=== PATIENT | female | born 1955 | race Caucasian/White ===

== ENCOUNTER 2021-11-09 06:59 | Day surgery (SDC) | payer MEDICAID ==
[~2021-11-09 06:59] MED LIST: Acetaminophen 325 MG Tab PO SCH; Lactated Ringers 1,000 ML IV SCH; Lidocaine 1%/Sod Bicarbonate in NS 8.4% 1 ML Syringe IDERM PRN; Morphine 8 MG, EPINEPHrine 0.3 MG, Cefuroxime 750 MG, Ketorolac 30 MG, Sodium Chloride ... PRN; Pregabalin 25 MG Cap PO SCH; Sodium Chloride 0.9% 10 ML Syringe FLUSH PRN; oxyCODONE ER 10 MG TAB.ER PO SCH
[2021-11-09] MEDS ORDERED: ceFAZolin 1 GM Vial ONE (07:19)
[2021-11-09] MEDS ORDERED: Propofol 200 MG/20 ML SDV ONE (07:20)
[2021-11-09] MEDS ORDERED: fentaNYL 100 MCG/2 ML SDV ONE (07:20)
[2021-11-09] MEDS ORDERED: Vancomycin 1 GM SDV ONE (07:23)
[2021-11-09] MEDS ORDERED: Midazolam 1 MG/ML 2 ML SDV ONE (07:32)
--- NOTE | 2021-11-09 08:00 | PCM.PREANE ---
Preanesthetic Assessment - Procedure Proposed Procedure: Right THR - Anesthesia/Transfusion/Family Hx Anesthesia History: Prior Anesthesia Without Reaction - Review of Systems General: No Symptoms Pulmonary: No Symptoms Cardiovascular: No Symptoms Gastrointestinal: No Symptoms Neurological: No Symptoms Other: Reports: None - Physical Assessment NPO Status Date: 11/08/21 NPO Status Time: 21:30 Vital Signs: 157/62, 78 HR 95% SpO2 ASA Class: 3 Mental Status: Alert & Oriented x3 Airway Class: Mallampati = 2 Dentition: Reports: Normal Dentition, [place](s), Bridge Thyro-Mental Finger Breadths: 3 Mouth Opening Finger Breadths: 3 ROM/Head Extension: Full Lungs: Clear to Auscultation, Normal Respiratory Effort Cardiovascular: Regular Rate, Regular Rhythm - Allergies Allergies/Adverse Reactions: Allergies Allergy/AdvReac Type Severity Reaction Status Date / Time amoxicillin Allergy Itching Verified 03/07/21 08:53 chlorhexidine Allergy Rash Verified 11/09/21 09:41 erythromycin base Allergy Vomiting Verified 03/07/21 08:53 Penicillins Allergy Cannot Verified 03/07/21 08:53 Remember tetracycline Allergy Tachycardia Verified 03/07/21 08:53 NARCOTICS Allergy Severe Dizziness Uncoded 03/07/21 11:59 - Acknowledgements Anesthesia Type Planned: General Anesthesia, Spinal Pt an Appropriate Candidate for the Planned Anesthesia: Yes Alternatives and Risks of Anesthesia Discussed w Pt/Guardian: Yes Pt/Guardian Understands and Agrees with Anesthesia Plan: Yes PreAnesthesia Questionnaire - HOME MEDS Home Medications: Home Meds Anastrozole [Arimidex] 1 mg PO DAILY 04/28/20 [History] Multivitamin [Multi-Vitamin Daily] 1 tab PO DAILY 04/28/20 [History] Biotin 1 cap PO DAILY 10/03/20 [History] Calcium Carb/Vitamin D3/Vit K1 [Calcium + D Soft Chewable Tab] 1 tab PO DAILY 10/03/20 [History] Cholecalciferol (Vitamin D3) [Vitamin D3] 1 tab PO DAILY 10/03/20 [History] Garlic 2 each PO DAILY 10/03/20 [History] Kptwealj-Qbytpqy-Utpj 149-Hyal [Glucosamine-Chondr Complex Tab] 2 each PO DAILY 10/03/20 [History] Turmeric 1 cap PO DAILY 10/03/20 [History] Vitamin B Complex 1 cap PO DAILY 10/03/20 [History] Vitamin E 200 unit PO DAILY 10/03/20 [History] Sulfamethoxazole/Trimethoprim [Bactrim Ds Tablet] 1 tab PO BID 03/07/21 [History] Apixaban [Eliquis] 2.5 mg PO BID #70 tablet 11/08/21 [Rx] Cyclobenzaprine [Flexeril] 5 mg PO BID PRN #10 tab 11/08/21 [Rx] Hydrocodone/Acetaminophen [HYDROcodone-Acetaminophen 5-325 MG] 1 - 2 each PO Q4H PRN #30 tablet 11/08/21 [Rx] lisinopriL [Lisinopril] 10 mg PO DAILY 11/09/21 [History] - CURRENT (IN HOUSE) MEDS Current Meds: Current Medications Acetaminophen (Acetaminophen 325 Mg Tab) 975 mg PO ONETIME LORENE Stop: 11/09/21 12:00 Morphine Sulfate 8 mg/Epinephrine HCl 0.3 mg/Cefuroxime Sodium 750 mg/Ketorolac Tromethamine 30 mg/Sodium Chloride 7.9 ml 0 mg .XX ASDIRECTED PRN PRN Reason: Pain Stop: 11/09/21 16:00 Lactated Ringer's (Ringers, Lactated) 1,000 mls @ 125 mls/hr IV ASDIRECTED LORENE Stop: 11/09/21 23:00 Lidocaine/Sodium Bicarbonate (Lidocaine 1%/Sod Bicarbonate In Ns 8.4% 1 Ml Syringe) 0.25 ml IDERM ONETIME PRN PRN Reason: Prior to IV Start Stop: 11/09/21 18:00 Oxycodone HCl (Oxycodone Er 10 Mg Tab.Er) 10 mg PO ONETIME LORENE Stop: 11/09/21 12:00 Pregabalin (Pregabalin 25 Mg Cap) 25 mg PO ONETIME LORENE Stop: 11/09/21 12:00 Sodium Chloride (Sodium Chloride 0.9% 10 Ml Syringe) 10 ml FLUSH ASDIRECTED PRN PRN Reason: Keep Vein Open Stop: 11/09/21 18:00 Discontinued Medications Cefazolin Sodium (Cefazolin 1 Gm Vial) Confirm Administered Dose 2 gm .ROUTE .STK-MED ONE Stop: 11/09/21 07:20 Fentanyl (Fentanyl 100 Mcg/2 Ml Sdv) Confirm Administered Dose 100 mcg .ROUTE .STK-MED ONE Stop: 12/09/21 07:21 Midazolam HCl (Midazolam 1 Mg/Ml 2 Ml Sdv) Confirm Administered Dose 2 mg .ROUTE .STK-MED ONE Stop: 11/09/21 07:33 Propofol (Propofol 200 Mg/20 Ml Sdv) Confirm Administered Dose 400 mg .ROUTE .STK-MED ONE Stop: 11/09/21 07:21 Tranexamic Acid (Tranexamic Acid 1,000 Mg/10 Ml Amp) Confirm Administered Dose 1,000 mg .ROUTE .STK-MED ONE Stop: 11/09/21 07:25 Vancomycin HCl (Vancomycin 1 Gm Sdv) Confirm Administered Dose 1 gm .ROUTE .STK- MED ONE Stop: 11/09/21 07:24
[2021-11-09] MEDS ORDERED: Bupivacaine 0.25% 10 ML SDV ONE (08:06)
[2021-11-09] MEDS ORDERED: Triamcinolone Acetonide 40 MG/ML 1 ML SDV ONE ×2 (08:06→10:26)
[2021-11-09] MEDS ORDERED: Bupivacaine 0.75% 30 ML SDV ONE (08:31)
[2021-11-09] MEDS ORDERED: ePHEDrine 50 MG/ML SDV ONE (09:23)
[2021-11-09] MEDS ORDERED: Lactated Ringers 1,000 ML ONE (09:25)
--- NOTE | 2021-11-09 10:58 | CR ---
Pelvis and right hip: AP and crosstable lateral views of the right hip were obtained. Comparison: Prior right hip CT study of 10/17/21. Right hip prosthesis is noted. Components are aligned. Underlying bony structures are intact. Small amount of soft tissue air is seen. Impression: 1. Satisfactory postoperative radiographic appearance of recently placed right hip prosthesis. Diagnostic code #2
--- NOTE | 2021-11-09 11:20 | PCM.POSTAN ---
POST ANESTHESIA ASSESSMENT - MENTAL STATUS Mental Status: Somnolent - VITAL SIGNS Vital Signs: Last Vital Signs Temp 98.4 F 11/09/21 07:15 Pulse 78 11/09/21 07:15 Resp 16 11/09/21 10:45 BP 108/56 L 11/09/21 10:45 Pulse Ox 97 11/09/21 10:45 - RESPIRATORY Respiratory Status: Respiratory Rate WNL, Airway Patent, O2 Saturation Stable, Supplemental Oxygen - CARDIOVASCULAR CV Status: Pulse Rate WNL, Blood Pressure Stable - GASTROINTESTINAL GI Status: No Symptoms - PAIN Pain Score: 0 (post SAB) - POST OP HYDRATION Hydration Status: Adequate & Stable
[2021-11-09] MEDS: Ondansetron 4 MG Tab.DIS PO STA ×2 (13:15→18:54)
[2021-11-09] MEDS: Dexamethasone 4 MG/ML SDV IVPUSH STA ×2 (15:35→18:54)
[2021-11-09] MEDS: Scopolamine 1.5 MG Transdermal Patch TOP STA ×2 (15:35→18:54)
[2021-11-09] MEDS: diphenhydrAMINE 50 MG/ML SDV IVPUSH STA ×2 (15:38→18:54)
[2021-11-09] MEDS: Acetaminophen/HYDROcodone 325-5 MG Tab PO PRN (20:13)
[2021-11-10] MEDS: Acetaminophen/HYDROcodone 325-5 MG Tab PO PRN ×2 (01:09→07:30)
[2021-11-10] MEDS ORDERED: Cyclobenzaprine 10 MG Tab PO PRN (17:28)
--- NOTE | 2021-11-19 17:08 | PCM.OPNOTE ---
- General Post-Op/Procedure Note Date of Surgery/Procedure: 11/09/21 Operative Procedure(s): right total hip arthroplasty with [employer] robot[employer] Pre Op Diagnosis: right hip osteoarthrosis Post-Op Diagnosis: Same Anesthesia Technique: Local, MAC, Spinal Primary Surgeon: Warren Cervantes Anesthesia Provider: Kareem Smith Aws Developer: Amy Rodriguez Aws Developer: Berkley Weathers EBL in mLs: 250 Complications: None Condition: Good Free Text/Narrative:: 52 6 36+0
--- NOTE | 2021-11-20 10:56 | OR ---
DATE OF OPERATION: 11/09/2021 SURGEON: Warren Cervantes MD OPERATION PERFORMED: Right total hip arthroplasty with [employer] robot[employer]. PREOPERATIVE DIAGNOSIS: Right hip osteoarthrosis. POSTOPERATIVE DIAGNOSIS: Right hip osteoarthrosis. ANESTHESIA: Local MAC with spinal. ANESTHESIA PROVIDER: Estelita Francis. ASSISTANTS: Amy Rodriguez PA-C and Berkley Weathers LPN. ESTIMATED BLOOD LOSS: 250 mL. COMPLICATIONS: None. CONDITION: Stable. IMPLANT: 1. [place] size 52 mm solid Tritanium II acetabular cup. 2. [place] size 6 Accolade II stem. 3. [place] size 36 +0 Biolox femoral head. DESCRIPTION OF PROCEDURE: The patient was identified in the preoperative holding area. Proper site was marked and identified by the surgeon. The patient was taken back to the operating theater, where after adequate anesthesia, the patient was placed in a left lateral decubitus position. Axillary roll was placed. Pegs were placed and well padded. The patient's gluteal fold was parallel to the floor. Right hip was then sterilely prepped and draped in the usual sterile fashion. OR time- out was performed. The patient received 2 g IV Ancef. Three small poke hole incisions were then made over the iliac crest 3 fingerbreadths posterior to the ASIS, and three 4.0 Schanz pins were placed and the [employer] robotic array was placed down onto the iliac crest. At this time, standard posterior incision was made. This was taken down to the IT band and gluteal fascia which was incised along the incisional length. Charnley retractor was then placed. Short external rotators were identified. Takedown of short external rotators was done from the level of the piriformis down to the lesser trochanter. The checkpoint was then placed in the greater trochanter and leg lengths were measured using [employer] robot[employer]. Hip was then dislocated. Neck cut was completed and found to be adequate. Attention was turned to the acetabulum. Anterior and posterior acetabular retractors were placed. Circumferential removal of the pulvinar as well as the labrum was done at this time. Checkpoint was placed on the superior rim of the acetabulum. Three check points were then marked on the iliac crest and then 15 points were obtained intra-articularly and extra- articularly in the acetabulum. At this time, the 52 mm was brought in on the [employer] robotic arm for 45 degrees of abduction and 20 degrees of anteversion and ream was completed and found to be adequate. The 52 mm cup was then loaded onto the robotic arm and was impacted in place in 45 degrees of abduction, 20 degrees of anteversion. The 36 mm flat liner was then impacted in place. Attention was turned to the femur. Box chisel was used out laterally. Starter awl was placed down the canal. Starting with the 0 broach, I was able to broach up to a size 6 which was found to be rotationally and vertically stable. 127-degree trial neck was placed and a 36 +0 trial was placed. The patient had adequate rastafari of leg lengths, which were measured and stable throughout range of motion. Hip was dislocated. Trial implants were removed. The size 6 Accolade II stem was impacted in place along with a 36 +0 Biolox femoral head. Hip was then relocated. #5 Ethibond suture was used for closure of short external rotators and capsule. Next, a liter of pulse lavage irrigation with Ancef was irrigated through the hip along with 400 mL IrriSept irrigation. Topical tranexamic acid and vancomycin powder were applied. Periarticular injection was completed. #2 barbed suture was used for closure of the IT band and gluteal fascia. 2-0 Vicryl was used subcutaneously, and Prineo was used for skin closure. Please note, the patient had a sterile soft dressing applied and sent to PACU in stable condition. All [employer] robotic checkpoints and arrays were removed before closure. MMODAL /[id number]
== END 2021-11-10 10:45 | disposition home or self-care (01) ==
LOC: JD.SDS 06:59 → JD.MS 18:42 → JD.SDS 11-10 10:45
PROVIDERS: ATTEND Orthopaedic Surgery
DX: M16.11 Unilateral primary osteoarthritis, right hip (principal); N39.0 Urinary tract infection, site not specified; G47.33 Obstructive sleep apnea (adult) (pediatric); I10 Essential (primary) hypertension; F41.9 Anxiety disorder, unspecified; F32.A Depression, unspecified; E78.5 Hyperlipidemia, unspecified; G60.9 Hereditary and idiopathic neuropathy, unspecified; E55.9 Vitamin D deficiency, unspecified; Z90.49 Acquired absence of other specified parts of digestive tract; Z98.890 Other specified postprocedural states; Z88.8 Allergy status to other drugs, medicaments and biological substances; Z88.0 Allergy status to penicillin; Z88.1 Allergy status to other antibiotic agents; Z79.899 Other long term (current) drug therapy
CPT/HCPCS: 01214; 36415; 73501-26-RT; 73501-RT; 85610; 85730; 86850; 86900; 86901; 97110-GP; 97116-GP; 97161-GP; A9270-GY; C1713; C1776; J0171; J0690; J0697; J1100; J1200; J1885; J2250; J2270; J2370; J2704; J3010; J3301; J3370; J3490; J7120

== ENCOUNTER 2023-09-30 06:30 | Day surgery (SDC) | payer MEDICARE ==
[~2023-09-30 06:30] MED LIST changes: -Acetaminophen 325 MG Tab PO SCH; -Lidocaine 1%/Sod Bicarbonate in NS 8.4% 1 ML Syringe IDERM PRN; -Pregabalin 25 MG Cap PO SCH; +Sodium Chloride 0.9% 10 ML Syringe FLUSH SCH; -oxyCODONE ER 10 MG TAB.ER PO SCH
[2023-09-30] MEDS ORDERED: Vancomycin 1 GM SDV ONE (06:53)
[2023-09-30] MEDS ORDERED: Tranexamic Acid 1,000 MG/10 ML Vial ONE (06:55)
[2023-09-30] MEDS ORDERED: Scopolamine 1.5 MG Transdermal Patch TRDERM PRN (07:00)
[2023-09-30] MEDS ORDERED: fentaNYL 100 MCG/2 ML SDV IVPUSH PRN (07:10)
[2023-09-30] MEDS ORDERED: HYDROmorphone 0.5 MG/0.5 ML Syringe IVPUSH PRN (07:10)
[2023-09-30] MEDS ORDERED: Ondansetron 4 MG/2 ML SDV IVPUSH PRN (07:10)
[2023-09-30] MEDS ORDERED: Lactated Ringers 1,000 ML ONE (07:16)
[2023-09-30] MEDS ORDERED: Midazolam 1 MG/ML 2 ML SDV ONE (07:16)
[2023-09-30] MEDS ORDERED: Propofol 200 MG/20 ML SDV ONE (07:16)
[2023-09-30] MEDS ORDERED: ceFAZolin 2 GM Vial ONE (07:16)
[2023-09-30] MEDS ORDERED: Dexmedetomidine 200 MCG/2 ML SDV ONE (07:20)
[2023-09-30] MEDS ORDERED: Ropivacaine 0.5% 5 MG/ML 30 ML SDV ONE (07:20)
[2023-09-30] MEDS ORDERED: fentaNYL 100 MCG/2 ML SDV ONE (07:51)
[2023-09-30] MEDS ORDERED: Lidocaine 1% PF 2 ML SDV ONE (08:00)
[2023-09-30] MEDS ORDERED: Ondansetron 4 MG/2 ML SDV ONE (08:52)
[2023-09-30] MEDS ORDERED: Ketorolac 30 MG/ML SDV ONE (08:53)
[2023-09-30] MEDS ORDERED: Acetaminophen/HYDROcodone 325-5 MG Tab PO PRN (09:56)
[2023-09-30] MEDS ORDERED: Cyclobenzaprine 10 MG Tab PO PRN (09:56)
[2023-09-30] MEDS ORDERED: diphenhydrAMINE 50 MG/ML SDV IVPUSH SCH (11:25)
== END 2023-09-30 16:30 | disposition home or self-care (01) ==
LOC: JD.SDS 06:30
PROVIDERS: ATTEND Orthopaedic Surgery
DX: M17.11 Unilateral primary osteoarthritis, right knee (principal); G89.29 Other chronic pain; F41.9 Anxiety disorder, unspecified; N39.0 Urinary tract infection, site not specified; F32.A Depression, unspecified; E78.5 Hyperlipidemia, unspecified; I10 Essential (primary) hypertension; G60.9 Hereditary and idiopathic neuropathy, unspecified; G47.00 Insomnia, unspecified; M85.80 Other specified disorders of bone density and structure, unspecified site; Z88.1 Allergy status to other antibiotic agents; Z88.5 Allergy status to narcotic agent; Z88.0 Allergy status to penicillin; Z79.899 Other long term (current) drug therapy
CPT/HCPCS: 0055T; 27447; 64447; 73560; 97110; 97116; 97161; A9270; C1713; C1776; J0171; J0690; J0697; J1170; J1200; J1885; J2250; J2270; J2405; J2704; J2795; J3010; J3370; J7030; J7120; 01402; J3490

== ENCOUNTER 2023-10-08 16:11 | Inpatient (IN) | payer MEDICARE ==
[2023-10-08] MEDS ORDERED: diphenhydrAMINE 50 MG/ML SDV IVPUSH ONE (16:56)
[2023-10-08] MEDS ORDERED: Metoclopramide 10 MG/2 ML SDV IVPUSH ONE (16:56)
[2023-10-08] MEDS ORDERED: cefTRIAXone 2 GM in Sodium Chloride 0.9% 100 ML IV ONE ×2 (16:57→21:00)
[2023-10-08] MEDS ORDERED: Sodium Chloride 0.9% 1,000 ML IV SCH ×2 (17:00→18:30)
[2023-10-08 17:37] LABS: BASOPHILS ABSOLUTE AUTO 0.1 K/mm3 (0.0-0.2); BASOPHILS PERCENT AUTO 0.9 % (0.0-1.0); EOSINOPHILS ABSOLUTE AUTO 0.2 K/mm3 (0.0-0.4); EOSINOPHILS PERCENT AUTO 1.6 % (0.0-6.0); HEMATOCRIT 37.1 % (37.0-47.0); HEMOGLOBIN 12.7 gm/dl (12.0-16.0); IMMATURE GRAN ABSOLUTE AUTO 0.05 K/mm3 (0.00-0.05); IMMATURE GRAN PERCENT AUTO 0.5 % (0.0-0.4); LYMPHOCYTES ABSOLUTE AUTO 1.2 K/mm3 (1.0-4.8); LYMPHOCYTES PERCENT AUTO 11.6 % (24.0-44.0); MEAN CORPUSCULAR HEMOGLOBIN 29.6 pg (28.0-32.0); MEAN CORPUSCULAR HGB CONC 34.2 g/dl (32.0-36.0); MEAN CORPUSCULAR VOLUME 86.5 fl (83.0-99.0); MEAN PLATELET VOLUME 9.4 fl (9.4-12.3); MONOCYTES ABSOLUTE AUTO 0.7 K/mm3 (0.0-0.8); MONOCYTES PERCENT AUTO 6.6 % (0.0-8.0); NEUTROPHILS ABSOLUTE AUTO 8.1 K/mm3 (1.8-7.7); NEUTROPHILS PERCENT AUTO 78.8 % (41.0-71.0); PLATELET COUNT,PLT 294 K/mm3 (150-400); RED BLOOD CELL COUNT 4.29 M/mm3 (4.10-5.30); WHITE BLOOD CELL COUNT,WBC 10.27 K/mm3 (3.9-11.3)
[2023-10-08 17:48] LABS: INR 0.98; PROTHROMBIN TIME 10.5 SECONDS (9.7-12.0)
[2023-10-08 17:49] LABS: PTT,PARTIAL THROMBOPLSTIN TIME 20.5 SECONDS (21.7-31.4)
[2023-10-08 17:51] LABS: A/G RATIO 0.8 (1-2); ALBUMIN 3.4 g/dl (3.4-5.0); ANION GAP 20.2 (5-15); BILIRUBIN TOTAL 0.6 mg/dL (0.2-1.0); C-REACTIVE PROTEIN 3.3 mg/dL (<1.0); CALCIUM 9.4 mg/dL (8.5-10.1); EST CRCL DRUG DOSING (CG) 51.8 mL/min; PROTEIN TOTAL,TP 7.7 g/dl (6.4-8.2)
[2023-10-08] MEDS ORDERED: Acetaminophen 325 MG Tab PO ONE ×2 (17:52→19:49)
[2023-10-08 17:53] LABS: LACTIC ACID 1.1 mmol/L (0.4-2.0)
[2023-10-08] MEDS ORDERED: Cyclobenzaprine 10 MG Tab PO PRN (17:55)
[2023-10-08 18:00] LABS: POTASSIUM,K 4.2 mEq/L (3.5-5.1)
[2023-10-08] MEDS ORDERED: MONUROL PO SCH (18:00)
[2023-10-08] MEDS ORDERED: Ondansetron 4 MG/2 ML SDV IVPUSH PRN (18:22)
[2023-10-08 19:09] LABS: APPEARANCE,URINE CLEAR (Clear); BILIRUBIN,URINE NEGATIVE (Negative); COLOR,URINE YELLOW (Yellow); GLUCOSE,URINE NEGATIVE (Negative); KETONES,URINE 1+ (Negative); LEUKOCYTE ESTERASE,URINE NEGATIVE (Negative); NITRITE,URINE NEGATIVE (Negative); OCCULT BLOOD,URINE NEGATIVE (Negative); PROTEIN,URINE NEGATIVE (Negative); UROBILINOGEN,URINE 0.2 (0.2-1.0)
[2023-10-08 19:44] LABS: BACTERIA,URINE FEW /hpf (FEW); MUCUS,URINE FEW /hpf (FEW); RBC,URINE 0-5 /hpf (0-5); SQUAMOUS EPITHELIAL CELLS,UR 0-5 /hpf (0-5); WBC,URINE 0-5 /hpf (0-5)
[2023-10-08] MEDS ORDERED: HYDROmorphone 0.5 MG/0.5 ML Syringe IVPUSH ONE (19:49)
[2023-10-08] MEDS ORDERED: Metoclopramide 10 MG/2 ML SDV ONE (20:42)
[2023-10-08] MEDS ORDERED: diphenhydrAMINE 50 MG/ML SDV ONE (20:43)
[2023-10-08] MEDS: Enoxaparin 40 MG/0.4 ML Syringe SUBCUT SCH (20:58)
[2023-10-08] MEDS: Acetaminophen 325 MG Tab PO PRN (20:58)
[2023-10-08] MEDS: hydrALAZINE 25 MG Tab PO SCH (20:59)
[2023-10-08] MEDS: amLODIPine 10 MG Tab PO SCH (20:59)
[2023-10-08] MEDS: traZODone 50 MG Tab PO PRN (21:57)
[2023-10-09] MEDS: oxyCODONE 5 MG Tab PO PRN (01:38)
[2023-10-09] MEDS: Acetaminophen/HYDROcodone 325-5 MG Tab PO PRN ×4 (02:43→22:47)
[2023-10-09] MEDS: hydrALAZINE 25 MG Tab PO SCH ×3 (06:20→21:14)
[2023-10-09 06:36] LABS: BASOPHILS ABSOLUTE AUTO 0.1 K/mm3 (0.0-0.2); BASOPHILS PERCENT AUTO 1.3 % (0.0-1.0); EOSINOPHILS ABSOLUTE AUTO 0.3 K/mm3 (0.0-0.4); EOSINOPHILS PERCENT AUTO 3.2 % (0.0-6.0); HEMATOCRIT 35.4 % (37.0-47.0); HEMOGLOBIN 11.8 gm/dl (12.0-16.0); IMMATURE GRAN ABSOLUTE AUTO 0.06 K/mm3 (0.00-0.05); IMMATURE GRAN PERCENT AUTO 0.6 % (0.0-0.4); LYMPHOCYTES ABSOLUTE AUTO 1.5 K/mm3 (1.0-4.8); LYMPHOCYTES PERCENT AUTO 14.6 % (24.0-44.0); MEAN CORPUSCULAR HEMOGLOBIN 29.5 pg (28.0-32.0); MEAN CORPUSCULAR HGB CONC 33.3 g/dl (32.0-36.0); MEAN CORPUSCULAR VOLUME 88.5 fl (83.0-99.0); MEAN PLATELET VOLUME 8.3 fl (9.4-12.3); MONOCYTES ABSOLUTE AUTO 0.7 K/mm3 (0.0-0.8); MONOCYTES PERCENT AUTO 7.1 % (0.0-8.0); NEUTROPHILS ABSOLUTE AUTO 7.6 K/mm3 (1.8-7.7); NEUTROPHILS PERCENT AUTO 73.2 % (41.0-71.0); WHITE BLOOD CELL COUNT,WBC 10.38 K/mm3 (3.9-11.3)
[2023-10-09 06:40] LABS: BUN/CREATININE RATIO 18.2 (14-18); CALCIUM 8.4 mg/dL (8.5-10.1); CREATININE 1.1 mg/dL (0.55-1.02); EST CRCL DRUG DOSING (CG) 47.1 mL/min
[2023-10-09 07:00] LABS: PLATELET COUNT,PLT 416 K/mm3 (150-400)
[2023-10-09] MEDS: Enoxaparin 40 MG/0.4 ML Syringe SUBCUT SCH (08:46)
[2023-10-09] MEDS: amLODIPine 10 MG Tab PO SCH (08:46)
[2023-10-09] MEDS: Sennosides/Docusate Sodium 50-8.6 MG Tab PO PRN (08:57)
[2023-10-09] MEDS ORDERED: Non-Formulary Medication 1 Each (Mirabegron 25 MG Tab.Er) PO SCH (09:00)
[2023-10-09 14:22] LABS: HEMOGLOBIN A1C 5.5 %
[2023-10-09] MEDS: Ibuprofen 600 MG Tab PO SCH ×2 (15:37→20:27)
[2023-10-09] MEDS: cefTRIAXone 2 GM in Sodium Chloride 0.9% 100 ML IV SCH (18:30)
[2023-10-09] MEDS: Apixaban 2.5 MG Tab PO SCH (20:27)
[2023-10-09] MEDS: traZODone 50 MG Tab PO PRN (21:14)
[2023-10-10] MEDS: hydrALAZINE 25 MG Tab PO SCH ×3 (05:46→21:00)
[2023-10-10] MEDS: Acetaminophen/HYDROcodone 325-5 MG Tab PO PRN ×3 (08:33→20:40)
[2023-10-10] MEDS: Sennosides/Docusate Sodium 50-8.6 MG Tab PO PRN (08:38)
[2023-10-10] MEDS: Apixaban 2.5 MG Tab PO SCH ×2 (08:39→20:43)
[2023-10-10] MEDS: Ibuprofen 600 MG Tab PO SCH (08:39)
[2023-10-10] MEDS: amLODIPine 10 MG Tab PO SCH (08:40)
[2023-10-10] MEDS ORDERED: diphenhydrAMINE 25 MG Cap PO ONE (18:08)
[2023-10-10] MEDS: cefTRIAXone 2 GM in Sodium Chloride 0.9% 100 ML IV SCH (18:09)
[2023-10-10] MEDS: Acetaminophen 325 MG Tab PO PRN (18:50)
[2023-10-10] MEDS: traZODone 50 MG Tab PO PRN (20:40)
[2023-10-11] MEDS: Acetaminophen/HYDROcodone 325-5 MG Tab PO PRN ×2 (01:42→08:05)
[2023-10-11] MEDS: oxyCODONE 5 MG Tab PO PRN ×4 (04:20→23:00)
[2023-10-11] MEDS ORDERED: diphenhydrAMINE 25 MG Cap PO ONE (05:17)
[2023-10-11] MEDS ORDERED: Ibuprofen 600 MG Tab PO ONE (05:19)
[2023-10-11] MEDS: hydrALAZINE 25 MG Tab PO SCH ×3 (06:01→21:03)
[2023-10-11] MEDS: Apixaban 2.5 MG Tab PO SCH ×2 (08:05→21:03)
[2023-10-11] MEDS: amLODIPine 10 MG Tab PO SCH (08:07)
[2023-10-11] MEDS: Acetaminophen 325 MG Tab PO PRN ×2 (15:59→21:03)
[2023-10-11] MEDS: cefTRIAXone 2 GM in Sodium Chloride 0.9% 100 ML IV SCH (17:39)
[2023-10-11] MEDS: Sennosides/Docusate Sodium 50-8.6 MG Tab PO PRN (18:34)
[2023-10-11] MEDS: traZODone 50 MG Tab PO PRN (22:05)
[2023-10-12] MEDS: Acetaminophen 325 MG Tab PO PRN ×5 (01:07→23:51)
[2023-10-12] MEDS: oxyCODONE 5 MG Tab PO PRN ×3 (04:07→13:47)
[2023-10-12] MEDS: hydrALAZINE 25 MG Tab PO SCH ×4 (06:17→22:49)
[2023-10-12] MEDS: Apixaban 2.5 MG Tab PO SCH ×2 (08:25→20:33)
[2023-10-12] MEDS: amLODIPine 10 MG Tab PO SCH (08:25)
[2023-10-12] MEDS: Ondansetron 4 MG Tab.DIS PO PRN (08:25)
[2023-10-12] MEDS ORDERED: Apixaban 2.5 MG Tab PO SCH (09:00)
[2023-10-12] MEDS: Bisacodyl 5 MG Tab PO PRN (10:12)
[2023-10-12] MEDS: Sennosides/Docusate Sodium 50-8.6 MG Tab PO PRN ×2 (15:37→20:34)
[2023-10-12] MEDS: cefTRIAXone 2 GM in Sodium Chloride 0.9% 100 ML IV SCH (18:03)
[2023-10-12] MEDS: traZODone 50 MG Tab PO PRN (20:34)
[2023-10-12] MEDS: Acetaminophen/HYDROcodone 325-5 MG Tab PO PRN (20:34)
[2023-10-13 05:47] LABS: BASOPHILS ABSOLUTE AUTO 0.1 K/mm3 (0.0-0.2); BASOPHILS PERCENT AUTO 1.1 % (0.0-1.0); EOSINOPHILS ABSOLUTE AUTO 0.3 K/mm3 (0.0-0.4); EOSINOPHILS PERCENT AUTO 2.8 % (0.0-6.0); HEMATOCRIT 31.9 % (37.0-47.0); HEMOGLOBIN 10.3 gm/dl (12.0-16.0); IMMATURE GRAN ABSOLUTE AUTO 0.03 K/mm3 (0.00-0.05); IMMATURE GRAN PERCENT AUTO 0.3 % (0.0-0.4); LYMPHOCYTES ABSOLUTE AUTO 0.8 K/mm3 (1.0-4.8); LYMPHOCYTES PERCENT AUTO 8.8 % (24.0-44.0); MEAN CORPUSCULAR HEMOGLOBIN 28.7 pg (28.0-32.0); MEAN CORPUSCULAR HGB CONC 32.3 g/dl (32.0-36.0); MEAN CORPUSCULAR VOLUME 88.9 fl (83.0-99.0); MEAN PLATELET VOLUME 8.1 fl (9.4-12.3); MONOCYTES ABSOLUTE AUTO 0.6 K/mm3 (0.0-0.8); MONOCYTES PERCENT AUTO 6.5 % (0.0-8.0); NEUTROPHILS ABSOLUTE AUTO 7.4 K/mm3 (1.8-7.7); NEUTROPHILS PERCENT AUTO 80.5 % (41.0-71.0); PLATELET COUNT,PLT 429 K/mm3 (150-400); RED BLOOD CELL COUNT 3.59 M/mm3 (4.10-5.30); WHITE BLOOD CELL COUNT,WBC 9.19 K/mm3 (3.9-11.3)
[2023-10-13 06:14] LABS: A/G RATIO 0.8 (1-2); ALBUMIN 2.8 g/dl (3.4-5.0); ANION GAP 13.2 (5-15); BILIRUBIN TOTAL 0.3 mg/dL (0.2-1.0); BUN/CREATININE RATIO 16.3 (14-18); C-REACTIVE PROTEIN 5.7 mg/dL (<1.0); CALCIUM 8.8 mg/dL (8.5-10.1); CREATININE 0.8 mg/dL (0.55-1.02); EST CRCL DRUG DOSING (CG) 64.76 mL/min; POTASSIUM,K 4.2 mEq/L (3.5-5.1); PROTEIN TOTAL,TP 6.4 g/dl (6.4-8.2)
[2023-10-13] MEDS: hydrALAZINE 25 MG Tab PO SCH ×3 (06:41→21:38)
[2023-10-13] MEDS: Acetaminophen 325 MG Tab PO PRN ×3 (06:42→21:43)
[2023-10-13] MEDS: Apixaban 2.5 MG Tab PO SCH ×2 (08:20→21:38)
[2023-10-13] MEDS: amLODIPine 10 MG Tab PO SCH (08:20)
[2023-10-13] MEDS: Bisacodyl 5 MG Tab PO PRN (08:20)
[2023-10-13] MEDS: cefTRIAXone 2 GM in Sodium Chloride 0.9% 100 ML IV SCH (18:26)
[2023-10-13] MEDS: Ondansetron 4 MG Tab.DIS PO PRN (19:02)
[2023-10-13] MEDS: traZODone 50 MG Tab PO PRN (21:39)
[2023-10-13] MEDS: Sennosides/Docusate Sodium 50-8.6 MG Tab PO PRN (21:40)
[2023-10-14 05:41] LABS: BASOPHILS ABSOLUTE AUTO 0.1 K/mm3 (0.0-0.2); BASOPHILS PERCENT AUTO 1.1 % (0.0-1.0); EOSINOPHILS ABSOLUTE AUTO 0.2 K/mm3 (0.0-0.4); EOSINOPHILS PERCENT AUTO 2.2 % (0.0-6.0); HEMATOCRIT 31.7 % (37.0-47.0); HEMOGLOBIN 10.3 gm/dl (12.0-16.0); IMMATURE GRAN ABSOLUTE AUTO 0.03 K/mm3 (0.00-0.05); IMMATURE GRAN PERCENT AUTO 0.3 % (0.0-0.4); LYMPHOCYTES ABSOLUTE AUTO 0.8 K/mm3 (1.0-4.8); LYMPHOCYTES PERCENT AUTO 8.3 % (24.0-44.0); MEAN CORPUSCULAR HEMOGLOBIN 28.8 pg (28.0-32.0); MEAN CORPUSCULAR HGB CONC 32.5 g/dl (32.0-36.0); MEAN CORPUSCULAR VOLUME 88.5 fl (83.0-99.0); MEAN PLATELET VOLUME 8.3 fl (9.4-12.3); MONOCYTES ABSOLUTE AUTO 0.7 K/mm3 (0.0-0.8); NEUTROPHILS ABSOLUTE AUTO 7.7 K/mm3 (1.8-7.7); NEUTROPHILS PERCENT AUTO 81.1 % (41.0-71.0); PLATELET COUNT,PLT 468 K/mm3 (150-400); RED BLOOD CELL COUNT 3.58 M/mm3 (4.10-5.30); WHITE BLOOD CELL COUNT,WBC 9.49 K/mm3 (3.9-11.3)
[2023-10-14 05:48] LABS: A/G RATIO 0.7 (1-2); ALBUMIN 2.7 g/dl (3.4-5.0); ANION GAP 14.9 (5-15); BILIRUBIN TOTAL 0.3 mg/dL (0.2-1.0); CALCIUM 8.9 mg/dL (8.5-10.1); CREATININE 0.8 mg/dL (0.55-1.02); EST CRCL DRUG DOSING (CG) 64.76 mL/min; POTASSIUM,K 3.9 mEq/L (3.5-5.1); PROTEIN TOTAL,TP 6.5 g/dl (6.4-8.2)
[2023-10-14] MEDS: hydrALAZINE 25 MG Tab PO SCH (05:55)
[2023-10-14] MEDS: Acetaminophen 325 MG Tab PO PRN ×2 (05:56→12:03)
[2023-10-14] MEDS: amLODIPine 10 MG Tab PO SCH (08:17)
[2023-10-14] MEDS: Apixaban 2.5 MG Tab PO SCH (08:18)
== END 2023-10-14 13:03 | disposition home or self-care (01) | DRG 690 ==
LOC: JD.ED 16:11 → JD.MS 17:44
PROVIDERS: ADMIT Hospitalist; ATTEND Hospitalist
DX: N30.00 Acute cystitis without hematuria (principal); N39.0 Urinary tract infection, site not specified; E86.0 Dehydration; E78.00 Pure hypercholesterolemia, unspecified; I10 Essential (primary) hypertension; M19.90 Unspecified osteoarthritis, unspecified site; F41.9 Anxiety disorder, unspecified; R94.31 Abnormal electrocardiogram [ECG] [EKG]; F32.A Depression, unspecified; E86.9 Volume depletion, unspecified; G47.00 Insomnia, unspecified; G62.9 Polyneuropathy, unspecified; Z96.641 Presence of right artificial hip joint; Z88.1 Allergy status to other antibiotic agents; Z88.0 Allergy status to penicillin; Z98.51 Tubal ligation status; Z88.8 Allergy status to other drugs, medicaments and biological substances; Z88.5 Allergy status to narcotic agent; Z98.890 Other specified postprocedural states; Z85.828 Personal history of other malignant neoplasm of skin; Z90.89 Acquired absence of other organs; Z90.49 Acquired absence of other specified parts of digestive tract; Z79.899 Other long term (current) drug therapy; Z96.651 Presence of right artificial knee joint
CPT/HCPCS: 36415; 71045; 71045-26; 73562-26-RT; 73562-RT; 80048; 80053; 81001; 82009; 83036; 83605; 83735; 83880; 85025; 85379; 85610; 85730; 86140; 87040; 87086; 93005; 93010; 93971-26-RT; 93971-RT; 97110-GP; 97116-GP; 97161-GP; 99222; 99232; 99239; 99285; A9270-GY; J0696; J1170; J1200; J1650; J2405; J2765; J3490; J7030